=== PATIENT | female | born 1960 | race Caucasian/White ===

== ENCOUNTER 2023-04-07 15:49 | Emergency (ER) | payer BC, OTHER ==
[~2023-04-07] VITALS: Ht 160 cm; Wt 108.9 kg
[2023-04-07] MEDS ORDERED: SODIUM CHLORIDE 0.9% 1000ML 1,000 ML IV STA (16:17)
[2023-04-07 16:30] LABS: BASOPHILS % 0.2 % (0.0-1.0); HEMATOCRIT 35.4 % (34.2-44.1); HEMOGLOBIN 12.2 g/dL (12.0-16.0); LYMPHOCYTES # (AUTO) 0.9 (1.0-3.2); MEAN CORPUSCULAR HGB CONC 34.5 g/dL (31-35); MONOCYTES # (AUTO) 0.3 (0.2-0.8); NEUTROPHILS # (AUTO) 8.8 (2.1-6.9); NEUTROPHILS % 87.5 % (38.7-80.0); PLATELET COUNT 304 x10e3/uL (140-360); RED BLOOD COUNT 4.07 x10e6/uL (3.6-5.1); RED CELL DISTRIBUTION WIDTH 12.8 % (11.7-14.4)
[2023-04-07 16:40] LABS: INR 0.93; PARTIAL THROMBOPLASTIN TIME 24.9 seconds (23.8-35.5)
[2023-04-07 16:48] LABS: ALANINE AMINOTRANSFERASE 16 IU/L (0-55); ALBUMIN 3.4 g/dL (3.5-5.0); ALKALINE PHOSPHATASE 53 IU/L (40-150); ANION GAP 17.5 mmol/L (8-16); BLOOD UREA NITROGEN 20 mg/dL (7-26); BUN/CREATININE RATIO 13 (6-25); CALCIUM 9.2 mg/dL (8.4-10.2); CARBON DIOXIDE 24 mmol/L (22-29); CHLORIDE 102 mmol/L (98-107); CREATINE KINASE 33 IU/L (29-168); CREATININE, SERUM 1.55 mg/dL (0.57-1.11); GLUCOSE 289 mg/dL (74-118); MAGNESIUM 1.4 MG/DL (1.3-2.1); POTASSIUM 3.5 mmol/L (3.5-5.1); SODIUM 140 mmol/L (136-145)
[2023-04-07 20:21] VITALS: BP 139/71; PULSE 78; RESP 17; O2SAT 100
== END 2023-04-07 18:36 | disposition home or self-care (01) ==
LOC: ER 16:04
DX: S09.90XA Unspecified injury of head, initial encounter (principal); N28.9 Disorder of kidney and ureter, unspecified; I10 Essential (primary) hypertension; E11.9 Type 2 diabetes mellitus without complications; E78.5 Hyperlipidemia, unspecified; W01.0XXA Fall on same level from slipping, tripping and stumbling without subsequent striking against object, initial encounter; Y92.000 Kitchen of unspecified non-institutional (private) residence as the place of occurrence of the external cause
CPT/HCPCS: 36415; 70450; 71045; 72125; 80053; 82550; 83735; 84484; 85025; 85610; 85730; 93005; 99284